=== PATIENT | female | born 1965 | race Caucasian/White ===

== ENCOUNTER → 2017-05-26 | Outpatient (CLI) | payer OTHER ==
--- NOTE | 2017-05-26 13:05 | RAD ---
EXAM DESCRIPTION: Wrist,Right 3 Views CLINICAL HISTORY: 52 years, Female, PAIN IN RIGHT WRIST COMPARISON: None TECHNIQUE: AP/ lateral/ oblique views of the right wrist. FINDINGS: Incompletely healed a sclerotic fracture through the distal radius at the junction of the metaphysis and epiphysis is present with endosteal sclerosis and a small amount of bridging callus formation with incomplete bony union at this time. Alignment is near-anatomic with very little dorsal angulation and no significant displacement. The distal ulna and ulnar styloid are intact. No carpal dislocation seen. IMPRESSION: 1. Chronic incompletely healed subacute fracture of the distal radius with endosteal sclerosis and callus formation but incomplete bony union is not apparent. Electronically signed by: Cristi Flores MD 05/26/2017 1:04 PM CDT
== END | disposition home or self-care (01) ==
LOC: RAD 09:32
PROVIDERS: ATTEND Orthopaedic Surgery
DX: M25.531 Pain in right wrist (principal)

== ENCOUNTER → 2017-07-03 | Outpatient (CLI) | payer OTHER ==
--- NOTE | 2017-07-04 09:20 | RAD ---
EXAM DESCRIPTION: Wrist,Right 3 Views CLINICAL HISTORY: 52 years, Female, CLOSED FX DISTAL END OF RADIUS COMPARISON: May 26, 2017 FINDINGS: Three-view right wrist shows healing transverse impaction fracture of the distal radius. Fracture line much less distinct than previous. Excellent alignment. No complicating process. IMPRESSION: 1. Healing fracture distal radius Electronically signed by: Hernando Cottrell MD 07/04/2017 9:18 AM CDT
== END | disposition home or self-care (01) ==
LOC: RAD 08:41
PROVIDERS: ATTEND Orthopaedic Surgery
DX: S52.501D Unspecified fracture of the lower end of right radius, subsequent encounter for closed fracture with routine healing (principal); X58.XXXA Exposure to other specified factors, initial encounter